=== PATIENT | female | born 1960 | race Hispanic/Latino ===

== ENCOUNTER 2023-05-02 21:02 | Inpatient (IN) | payer SELFPAY ==
[2023-05-02 21:51] LABS: #Basophils 0.1 10x3/uL (0.0-0.2); #Neutrophils 7.8 10x3/uL (1.5-8.4); %Basophils 0.5 % (0.0-2.0); %Eosinophils 0.1 % (0.0-6.0); %Lymphocytes 34.3 % (18.0-47.0); %Monocytes 7.4 % (0.0-10.0); Hemoglobin 9.3 g/dL (12.0-15.5); Mean Corpuscular HGB CONC 32.1 g/dL (32.0-36.0); Mean Corpuscular Hemoglobin 31.6 pg (27.0-33.0); Mean Corpuscular Volume 98.6 fl (81.6-98.3); Mean Platelet Volume 11.9 fl (7.4-10.4); Platelet Count 161 10x3/uL (150-450); RBC Distribution Width 13.6 % (11.5-14.5); Red Blood Cell (RBC) Count 2.94 10x6/uL (3.90-5.03); White Blood Cell (WBC) Count 13.7 10x3/uL (3.5-10.5)
[2023-05-02 21:57] LABS: ALT (SGPT) 32 U/L (8-55); AST (SGOT) 44 U/L (5-34); Albumin 3.1 g/dL (3.4-4.8); Alkaline Phosphatase 48 U/L (40-110); Anion Gap 30 mmol/L (10-20); BUN (Urea Nitrogen) 66 mg/dL (9.8-20.1); Calc. Creatinine Clearance 0 mL/min (70-130); Calcium 9.4 mg/dL (7.8-10.44); Carbon Dioxide 16 mmol/L (23-31); Chloride 99 mmol/L (98-107); Estimated GFR 39; Glucose 188 mg/dL (80-115); Magnesium 1.3 mg/dL (1.6-2.6); Potassium 4.5 mmol/L (3.5-5.1); Protein, Total 6.1 g/dL (5.8-8.1); Sodium 140 mmol/L (136-145)
[2023-05-02 22:13] LABS: Troponin I 0.315 ng/mL (< 0.028)
[2023-05-02 22:50] LABS: Bilirubin Neg (Negative); Blood, Urine Negative (Negative); Clarity Clear (Clear); Glucose, Urine (Dipstick) Normal (Negative); Ketone, Urine 15 mg/dL (Negative); Leukocyte 25 (Negative); Nitrite Negative (Negative); Protein, Urine (Dipstick) 15 mg/dl (Neg-Trace); Urobilinogen Normal mg/dL (Less than 2)
[2023-05-02 23:01] LABS: Bacteria/HPF Rare-Few HPF (None Seen); CAUTI Indications for Culture Alt mental st,lethar; Mucous/LPF Rare LPF (<2+); RBC/HPF 0-3 HPF (0-3); Squamous Epithelial 0-3 HPF (0-3)
[2023-05-02 23:02] LABS: Urine Culture Reflex No No
[2023-05-02] MEDS ORDERED: Piperacillin/Tazobactam 3.375 GM VIAL ONE (23:36)
[2023-05-02] MEDS ORDERED: Pantoprazole 40 MG VIAL ONE (23:37)
[2023-05-02] MEDS ORDERED: NOREPINEPHRINE 8 MG/250 ML-D5W 250 ML ONE (23:38)
[2023-05-02] MEDS ORDERED: Pantoprazole 80 MG, Admixture Fee 1 EACH in Sodium Chloride 0.9% 100 ML IVPB SCH (23:45)
[2023-05-03 00:31] LABS: #Monocytes 0.7 10x3/uL (0.0-1.1); #Neutrophils 9.9 10x3/uL (1.5-8.4); %Basophils 0.3 % (0.0-2.0); %Eosinophils 0.1 % (0.0-6.0); %Lymphocytes 27.1 % (18.0-47.0); %Monocytes 4.9 % (0.0-10.0); %Neutrophils 66.8 % (40.0-75.0); Hematocrit 24.5 % (34.9-44.5); Mean Corpuscular HGB CONC 32.7 g/dL (32.0-36.0); Platelet Count 145 10x3/uL (150-450); RBC Distribution Width 13.9 % (11.5-14.5); White Blood Cell (WBC) Count 14.8 10x3/uL (3.5-10.5)
[2023-05-03 00:41] LABS: Lactic Acid 12.7 mmol/L (0.5-2.2)
[2023-05-03] MEDS ORDERED: Ondansetron ODT 4 MG TAB PO PRN (00:57)
[2023-05-03] MEDS ORDERED: Ondansetron PF 4 MG/2 ML Vial IVP PRN (00:57)
[2023-05-03] MEDS ORDERED: Acetaminophen 325 MG TAB PO PRN ×2 (00:57→01:59)
[2023-05-03] MEDS ORDERED: Acetaminophen 650 MG Suppository PR PRN ×2 (00:57→02:00)
[2023-05-03 01:14] LABS: SARS-CoV-2 NAA Rapid Test Not Detected (NotDetected)
[2023-05-03] MEDS: NOREPINEPHRINE 8 MG/250 ML-D5W 250 ML IVPB SCH ×2 (01:25→06:12)
[2023-05-03 01:26] LABS: Anion Gap 28 mmol/L (10-20); BUN (Urea Nitrogen) 59 mg/dL (9.8-20.1); Calc. Creatinine Clearance 0 mL/min (70-130); Calcium 8.1 mg/dL (7.8-10.44); Carbon Dioxide 13 mmol/L (23-31); Chloride 104 mmol/L (98-107); Estimated GFR 56; Glucose 239 mg/dL (80-115); Potassium 4.5 mmol/L (3.5-5.1); Sodium 140 mmol/L (136-145)
[2023-05-03 01:51] VITALS: BMI 34.4
[2023-05-03] MEDS ORDERED: Glucagon 1 MG/ML KIT IM PRN (02:01)
[2023-05-03] MEDS ORDERED: HumaLOG 300 UNITS/3 ML VIAL SC PRN (02:01)
[2023-05-03] MEDS ORDERED: Dextrose 5% in Water 1,000 ML IV PRN (02:01)
[2023-05-03] MEDS ORDERED: Dextrose 50% Abboject 50 ML SYRINGE SLOW IVP PRN (02:01)
[2023-05-03] MEDS ORDERED: FLU VACC QS2023-24(6MOS UP)/PF 60 MCG/0.5 ML SYRINGE IM ONE (02:15)
[2023-05-03] MEDS ORDERED: Sodium Chloride 0.9% 1,000 ML IV SCH (03:30)
[2023-05-03 03:33] LABS: Anion Gap 24 mmol/L (10-20); BUN (Urea Nitrogen) 55 mg/dL (9.8-20.1); Calc. Creatinine Clearance 80 mL/min (70-130); Calcium 7.9 mg/dL (7.8-10.44); Carbon Dioxide 11 mmol/L (23-31); Chloride 107 mmol/L (98-107); Estimated GFR 64; Glucose 254 mg/dL (80-115); Potassium 4.4 mmol/L (3.5-5.1); Sodium 138 mmol/L (136-145)
[2023-05-03 03:35] LABS: Troponin I 0.357 ng/mL (< 0.028)
[2023-05-03] MEDS: Sodium Chloride 0.9% 1,000 ML IV SCH ×3 (03:45→14:20)
[2023-05-03] MEDS: HumaLOG 300 UNITS/3 ML VIAL SC PRN ×3 (06:13→16:30)
[2023-05-03] MEDS: Piperacillin/Tazobactam 3.375 GM in Sodium Chloride 0.9% 100 ML IVPB SCH ×3 (06:13→21:55)
[2023-05-03 06:24] LABS: #Monocytes 1.3 10x3/uL (0.0-1.1); #Neutrophils 9.8 10x3/uL (1.5-8.4); %Basophils 0.2 % (0.0-2.0); %Eosinophils 0.1 % (0.0-6.0); %Lymphocytes 31.8 % (18.0-47.0); %Monocytes 8.1 % (0.0-10.0); %Neutrophils 59.1 % (40.0-75.0); Hematocrit 23.3 % (34.9-44.5); Hemoglobin 7.8 g/dL (12.0-15.5); Mean Corpuscular HGB CONC 33.5 g/dL (32.0-36.0); Mean Corpuscular Volume 95.5 fl (81.6-98.3); Mean Platelet Volume 11.9 fl (7.4-10.4); Platelet Count 128 10x3/uL (150-450); RBC Distribution Width 15.1 % (11.5-14.5); Red Blood Cell (RBC) Count 2.44 10x6/uL (3.90-5.03); White Blood Cell (WBC) Count 16.6 10x3/uL (3.5-10.5)
[2023-05-03 06:31] LABS: Lactic Acid 8.1 mmol/L (0.5-2.2)
[2023-05-03 07:18] LABS: INR-International Normal Ratio 1.5; PTT 30.6 sec (22.0-33.0); Prothrombin Time 16.4 sec (9.5-12.1)
[2023-05-03] MEDS: Pantoprazole 80 MG, Admixture Fee 1 EACH in Sodium Chloride 0.9% 100 ML IVPB SCH ×2 (07:29→15:11)
[2023-05-03] MEDS ORDERED: Iopamidol 300 61% 100 ML VIAL FS ONE (10:27)
[2023-05-03 11:07] LABS: Hematocrit 24.7 % (34.9-44.5); Hemoglobin 8.3 g/dL (12.0-15.5); Platelet Count 122 10x3/uL (150-450)
[2023-05-03] MEDS ORDERED: Succinylcholine 200 MG/10 ml SYRINGE FS ONE ×3 (11:58→12:01)
[2023-05-03] MEDS ORDERED: Vasopressin 20 UNITS/ML VIAL ONE (12:02)
[2023-05-03] MEDS ORDERED: Promethazine HCl 25 MG/ML VIAL ONE (12:02)
[2023-05-03] MEDS ORDERED: PHENYLEPHRINE-NS 100 MCG/ML 10 ML SYRINGE ONE ×2 (12:05→13:23)
[2023-05-03] MEDS ORDERED: fentaNYL 50 mcg/mL 1 mL Vial ONE ×2 (13:02→13:24)
[2023-05-03] MEDS ORDERED: Ondansetron PF 4 MG/2 ML Vial ONE (13:20)
[2023-05-03] MEDS: Octreotide Acetate 1,250 MCG in Sodium Chloride 0.9% 250 ML 250 ML IVPB SCH (15:11)
[2023-05-04] MEDS: Sodium Chloride 0.9% 1,000 ML IV SCH ×4 (00:36→18:50)
[2023-05-04 04:14] LABS: #Eosinphils 0.2 10x3/uL (0.0-0.5); #Monocytes 0.6 10x3/uL (0.0-1.1); #Neutrophils 3.1 10x3/uL (1.5-8.4); %Basophils 0.5 % (0.0-2.0); %Eosinophils 3.2 % (0.0-6.0); %Lymphocytes 33.1 % (18.0-47.0); %Monocytes 9.9 % (0.0-10.0); %Neutrophils 53.1 % (40.0-75.0); Hematocrit 20.5 % (34.9-44.5); Hemoglobin 6.8 g/dL (12.0-15.5); Mean Corpuscular HGB CONC 33.2 g/dL (32.0-36.0); Mean Corpuscular Hemoglobin 30.8 pg (27.0-33.0); Mean Corpuscular Volume 92.8 fl (81.6-98.3); Mean Platelet Volume 11.3 fl (7.4-10.4); Platelet Count 60 10x3/uL (150-450); RBC Distribution Width 17.6 % (11.5-14.5); Red Blood Cell (RBC) Count 2.21 10x6/uL (3.90-5.03); White Blood Cell (WBC) Count 5.9 10x3/uL (3.5-10.5)
[2023-05-04 04:22] LABS: ALT (SGPT) 27 U/L (8-55); AST (SGOT) 47 U/L (5-34); Albumin 2.1 g/dL (3.4-4.8); Alkaline Phosphatase 34 U/L (40-110); Anion Gap 8 mmol/L (10-20); BUN (Urea Nitrogen) 27 mg/dL (9.8-20.1); Calc. Creatinine Clearance 116 mL/min (70-130); Calcium 6.5 mg/dL (7.8-10.44); Carbon Dioxide 23 mmol/L (23-31); Chloride 114 mmol/L (98-107); Estimated GFR 98; Globulin 1.9 g/dL (2.4-3.5); Glucose 242 mg/dL (80-115); Iron 58 ug/dL (50-170); Iron Binding Capacity, Total 196 mcg/dL (265-497); Potassium 3.2 mmol/L (3.5-5.1); Sodium 142 mmol/L (136-145)
[2023-05-04 04:28] LABS: Ferritin 88.61 ng/mL (10-291)
[2023-05-04 04:33] LABS: Platelet Adequacy Comment Appears Decreased; Polychromasia SLIGHT = 2-3 cells (100X) (0-2/hpf)
[2023-05-04] MEDS: Piperacillin/Tazobactam 3.375 GM in Sodium Chloride 0.9% 100 ML IVPB SCH ×2 (05:00→13:46)
[2023-05-04] MEDS ORDERED: Potassium Chloride 20 MEQ TAB PO SCH (05:00)
[2023-05-04] MEDS: Pantoprazole 80 MG, Admixture Fee 1 EACH in Sodium Chloride 0.9% 100 ML IVPB SCH ×2 (05:00→15:19)
[2023-05-04 08:23] LABS: Lactic Acid 1.2 mmol/L (0.5-2.2)
[2023-05-04] MEDS: HumaLOG 300 UNITS/3 ML VIAL SC PRN ×2 (11:42→16:34)
[2023-05-04 13:51] LABS: Immunoglob - A (Total IgA) 250 mg/dL (69-517); Immunoglob - G (Total IgG) 1077 mg/dL (552-1631); Immunoglob - M (Total IgM) 118 mg/dL (33-293)
[2023-05-04 14:42] LABS: Hep C IgG Ab Non-Reactive S/CO (NonReactive); Hep C Index 0.08 S/CO (0-0.79)
[2023-05-04 14:44] LABS: HBCM Index 0.08 S/CO (0-0.79); HBSAg Index 0.27 S/CO (0-0.99); Hep A IgM AB Non-Reactive S/CO (NonReactive); Hep A IgM S/CO 0.22 S/CO (0-0.79); Hep B Surf Ag Non-Reactive S/CO (NonReactive); Hepatitis B Core IgM Abs Non-Reactive S/CO (NonReactive)
[2023-05-04] MEDS: Octreotide Acetate 1,250 MCG in Sodium Chloride 0.9% 250 ML 250 ML IVPB SCH (16:48)
[2023-05-04] MEDS: Pantoprazole 40 MG VIAL IVP SCH (21:40)
[2023-05-05] MEDS: Sodium Chloride 0.9% 1,000 ML IV SCH ×4 (01:52→21:36)
[2023-05-05 04:13] LABS: Hematocrit 23.6 % (34.9-44.5); Hemoglobin 8.1 g/dL (12.0-15.5)
[2023-05-05 04:25] LABS: Anion Gap 9 mmol/L (10-20); BUN (Urea Nitrogen) 11 mg/dL (9.8-20.1); Calc. Creatinine Clearance 148 mL/min (70-130); Carbon Dioxide 20 mmol/L (23-31); Chloride 114 mmol/L (98-107); Estimated GFR 103; Glucose 136 mg/dL (80-115); Potassium 3.1 mmol/L (3.5-5.1); Sodium 140 mmol/L (136-145)
[2023-05-05 04:39] LABS: Calcium 5.9 mg/dL (7.8-10.44)
[2023-05-05] MEDS ORDERED: Phenol 177 ML BOT PO PRN ×2 (05:24→08:35)
[2023-05-05] MEDS ORDERED: Magnesium 2 GM/50 ML(in water) 2 GM in Premix 1 BAG IVPB SCH ×2 (06:00→10:00)
[2023-05-05] MEDS ORDERED: Calcium Gluc 4.6 MEQ/10 ML (100 MG/ML) SLOW IVP SCH (06:00)
[2023-05-05] MEDS: Potassium Chloride 20 MEQ in Premix 1 BAG IVPB SCH ×2 (06:18→08:39)
[2023-05-05] MEDS ORDERED: Electrolyte Replacement Protocol 1 EACH FS SCH (08:00)
[2023-05-05] MEDS: Pantoprazole 40 MG VIAL IVP SCH ×2 (08:39→20:26)
[2023-05-05 10:19] LABS: Anion Gap 9 mmol/L (10-20); BUN (Urea Nitrogen) 10 mg/dL (9.8-20.1); Calc. Creatinine Clearance 151 mL/min (70-130); Carbon Dioxide 18 mmol/L (23-31); Chloride 116 mmol/L (98-107); Estimated GFR 101; Glucose 255 mg/dL (80-115); Magnesium 1.8 mg/dL (1.6-2.6); Potassium 3.8 mmol/L (3.5-5.1); Sodium 139 mmol/L (136-145)
[2023-05-05 10:23] LABS: Calcium 6.1 mg/dL (7.8-10.44)
[2023-05-05] MEDS: HumaLOG 300 UNITS/3 ML VIAL SC PRN ×2 (11:43→15:47)
[2023-05-05] MEDS ORDERED: Calcium Gluconate 4.6 MEQ in Sodium Chloride 0.9% 100 ML IVPB SCH (12:00)
[2023-05-05 14:05] LABS: Potassium 3.9 mmol/L (3.5-5.1)
[2023-05-05] MEDS: Octreotide Acetate 1,250 MCG in Sodium Chloride 0.9% 250 ML 250 ML IVPB SCH (20:23)
[2023-05-05] MEDS: Ciprofloxacin 500 MG TAB PO SCH (20:23)
[2023-05-05] MEDS: Propranolol HCl 20 MG TAB PO SCH (20:24)
[2023-05-06 04:12] LABS: #Eosinphils 0.3 10x3/uL (0.0-0.5); #Monocytes 0.9 10x3/uL (0.0-1.1); #Neutrophils 5.3 10x3/uL (1.5-8.4); %Basophils 0.5 % (0.0-2.0); %Lymphocytes 23.7 % (18.0-47.0); %Monocytes 10.3 % (0.0-10.0); %Neutrophils 62.1 % (40.0-75.0); Hemoglobin 8.4 g/dL (12.0-15.5); Mean Corpuscular HGB CONC 33.6 g/dL (32.0-36.0); Mean Corpuscular Hemoglobin 31.2 pg (27.0-33.0); Mean Corpuscular Volume 92.9 fl (81.6-98.3); Mean Platelet Volume 11.6 fl (7.4-10.4); Platelet Count 90 10x3/uL (150-450); RBC Distribution Width 18.7 % (11.5-14.5); Red Blood Cell (RBC) Count 2.69 10x6/uL (3.90-5.03); White Blood Cell (WBC) Count 8.6 10x3/uL (3.5-10.5)
[2023-05-06 04:21] LABS: Anion Gap 10 mmol/L (10-20); BUN (Urea Nitrogen) 6 mg/dL (9.8-20.1); Calc. Creatinine Clearance 174 mL/min (70-130); Carbon Dioxide 19 mmol/L (23-31); Chloride 114 mmol/L (98-107); Estimated GFR 105; Glucose 149 mg/dL (80-115); Magnesium 1.2 mg/dL (1.6-2.6); Potassium 3.4 mmol/L (3.5-5.1); Sodium 140 mmol/L (136-145)
[2023-05-06 04:22] LABS: Phosphorus 1.4 mg/dL (2.3-4.7)
[2023-05-06 04:29] LABS: Calcium 5.8 mg/dL (7.8-10.44)
[2023-05-06] MEDS: Sodium Chloride 0.9% 1,000 ML IV SCH (05:39)
[2023-05-06] MEDS: Ciprofloxacin 500 MG TAB PO SCH ×2 (05:41→19:57)
[2023-05-06] MEDS: Magnesium 2 GM/50 ML(in water) 2 GM in Premix 1 BAG IVPB SCH ×2 (05:43→06:15)
[2023-05-06] MEDS ORDERED: Magnesium 2 GM/50 ML(in water) 2 GM in Premix 1 BAG IVPB SCH ×2 (06:00→15:30)
[2023-05-06] MEDS ORDERED: Potassium Phosphate 22 MMOL in Sodium Chloride 0.9% 250 ML 250 ML IVPB SCH (06:00)
[2023-05-06] MEDS ORDERED: Calcium Gluc 4.6 MEQ/10 ML (100 MG/ML) SLOW IVP SCH (06:15)
[2023-05-06] MEDS: Propranolol HCl 20 MG TAB PO SCH ×2 (07:43→19:57)
[2023-05-06] MEDS: Pantoprazole 40 MG VIAL IVP SCH ×2 (07:43→19:57)
[2023-05-06] MEDS ORDERED: Potassium Chloride 20 MEQ TAB PO SCH (09:00)
[2023-05-06] MEDS ORDERED: Furosemide 40 MG/4 ML VIAL SLOW IVP SCH (09:00)
[2023-05-06] MEDS: HumaLOG 300 UNITS/3 ML VIAL SC PRN ×2 (11:23→16:23)
[2023-05-06 13:30] LABS: Anion Gap 12 mmol/L (10-20); BUN (Urea Nitrogen) 6 mg/dL (9.8-20.1); Calc. Creatinine Clearance 163 mL/min (70-130); Calcium 6.1 mg/dL (7.8-10.44); Carbon Dioxide 19 mmol/L (23-31); Chloride 113 mmol/L (98-107); Estimated GFR 102; Glucose 183 mg/dL (80-115); Magnesium 1.6 mg/dL (1.6-2.6); Phosphorus 2.2 mg/dL (2.3-4.7); Potassium 3.6 mmol/L (3.5-5.1); Sodium 140 mmol/L (136-145)
[2023-05-06 14:46] LABS: Potassium 3.6 mmol/L (3.5-5.1)
[2023-05-06] MEDS ORDERED: Calcium Gluconate 4.6 MEQ in Sodium Chloride 0.9% 100 ML IVPB SCH (15:30)
[2023-05-06] MEDS ORDERED: Potassium Phosphate 30 MMOL in Sodium Chloride 0.9% 250 ML 250 ML IVPB SCH ×2 (16:30→18:15)
[2023-05-07] MEDS: Octreotide Acetate 1,250 MCG in Sodium Chloride 0.9% 250 ML 250 ML IVPB SCH (00:29)
[2023-05-07 03:53] LABS: Anion Gap 11 mmol/L (10-20); BUN (Urea Nitrogen) 7 mg/dL (9.8-20.1); Calc. Creatinine Clearance 156 mL/min (70-130); Carbon Dioxide 21 mmol/L (23-31); Chloride 111 mmol/L (98-107); Estimated GFR 102; Glucose 148 mg/dL (80-115); Magnesium 1.5 mg/dL (1.6-2.6); Phosphorus 2.4 mg/dL (2.3-4.7); Potassium 3.6 mmol/L (3.5-5.1); Sodium 139 mmol/L (136-145)
[2023-05-07 03:57] LABS: Calcium 6.1 mg/dL (7.8-10.44)
[2023-05-07 03:58] LABS: #Eosinphils 0.3 10x3/uL (0.0-0.5); #Neutrophils 5.9 10x3/uL (1.5-8.4); %Basophils 0.4 % (0.0-2.0); %Eosinophils 2.5 % (0.0-6.0); %Lymphocytes 28.5 % (18.0-47.0); %Monocytes 10.3 % (0.0-10.0); %Neutrophils 57.7 % (40.0-75.0); Hematocrit 25.8 % (34.9-44.5); Hemoglobin 8.6 g/dL (12.0-15.5); Mean Corpuscular HGB CONC 33.3 g/dL (32.0-36.0); Mean Corpuscular Hemoglobin 30.9 pg (27.0-33.0); Mean Corpuscular Volume 92.8 fl (81.6-98.3); RBC Distribution Width 18.5 % (11.5-14.5); Red Blood Cell (RBC) Count 2.78 10x6/uL (3.90-5.03); White Blood Cell (WBC) Count 10.1 10x3/uL (3.5-10.5)
[2023-05-07 04:17] LABS: Anisocytosis MODERATE=16-30 cells (100X) (0-5/hpf)
[2023-05-07 04:18] LABS: Delete Auto Diff?? NO; Platelet Adequacy Comment Appears Decreased; Polychromasia MODERATE = 3-4 cells (100X) (0-2/hpf)
[2023-05-07 04:19] LABS: Small Platelets SLIGHT HPF (0-15)
[2023-05-07 04:20] LABS: Mean Platelet Volume 11.1 fl (7.4-10.4); Platelet Count 115 10x3/uL (150-450)
[2023-05-07] MEDS: Ciprofloxacin 500 MG TAB PO SCH ×2 (05:51→19:56)
[2023-05-07] MEDS ORDERED: Magnesium 2 GM/50 ML(in water) 2 GM in Premix 1 BAG IVPB SCH ×2 (06:00→10:00)
[2023-05-07] MEDS ORDERED: Furosemide 40 MG/4 ML VIAL SLOW IVP SCH (09:00)
[2023-05-07] MEDS ORDERED: Spironolactone 25 MG TAB PO SCH (09:00)
[2023-05-07] MEDS ORDERED: Potassium Chloride 20 MEQ TAB PO SCH (09:00)
[2023-05-07] MEDS: Propranolol HCl 20 MG TAB PO SCH ×2 (09:16→21:01)
[2023-05-07] MEDS: HumaLOG 300 UNITS/3 ML VIAL SC PRN ×2 (12:18→15:57)
[2023-05-07] MEDS: Furosemide 40 MG/4 ML VIAL SLOW IVP SCH (14:30)
[2023-05-07 16:06] LABS: Anion Gap 9 mmol/L (10-20); BUN (Urea Nitrogen) 8 mg/dL (9.8-20.1); Calc. Creatinine Clearance 137 mL/min (70-130); Carbon Dioxide 24 mmol/L (23-31); Chloride 109 mmol/L (98-107); Estimated GFR 99; Glucose 214 mg/dL (80-115); Potassium 3.7 mmol/L (3.5-5.1); Sodium 138 mmol/L (136-145)
[2023-05-07 16:09] LABS: Calcium 6.3 mg/dL (7.8-10.44)
[2023-05-07] MEDS ORDERED: Calcium Gluc 4.6 MEQ/10 ML (100 MG/ML) SLOW IVP SCH (16:30)
[2023-05-07] MEDS: Calcium Carbonate 500 MG ChewTAB PO SCH (21:01)
[2023-05-08 05:12] LABS: #Eosinphils 0.2 10x3/uL (0.0-0.5); #Monocytes 0.8 10x3/uL (0.0-1.1); #Neutrophils 4.8 10x3/uL (1.5-8.4); %Basophils 0.5 % (0.0-2.0); %Eosinophils 2.3 % (0.0-6.0); %Lymphocytes 30.7 % (18.0-47.0); %Monocytes 9.7 % (0.0-10.0); Hematocrit 25.4 % (34.9-44.5); Hemoglobin 8.5 g/dL (12.0-15.5); Mean Corpuscular HGB CONC 33.5 g/dL (32.0-36.0); Mean Corpuscular Hemoglobin 31.3 pg (27.0-33.0); Mean Corpuscular Volume 93.4 fl (81.6-98.3); Mean Platelet Volume 11.7 fl (7.4-10.4); Platelet Count 97 10x3/uL (150-450); RBC Distribution Width 17.9 % (11.5-14.5); Red Blood Cell (RBC) Count 2.72 10x6/uL (3.90-5.03); White Blood Cell (WBC) Count 8.6 10x3/uL (3.5-10.5)
[2023-05-08 05:28] LABS: Anion Gap 8 mmol/L (10-20); BUN (Urea Nitrogen) 8 mg/dL (9.8-20.1); Calc. Creatinine Clearance 151 mL/min (70-130); Carbon Dioxide 25 mmol/L (23-31); Chloride 109 mmol/L (98-107); Estimated GFR 101; Glucose 132 mg/dL (80-115); Magnesium 1.2 mg/dL (1.6-2.6); Phosphorus 2.2 mg/dL (2.3-4.7); Potassium 3.4 mmol/L (3.5-5.1); Sodium 139 mmol/L (136-145)
[2023-05-08 05:35] LABS: Calcium 6.4 mg/dL (7.8-10.44)
[2023-05-08] MEDS: Furosemide 40 MG/4 ML VIAL SLOW IVP SCH ×2 (06:30→14:36)
[2023-05-08] MEDS: Ciprofloxacin 500 MG TAB PO SCH ×2 (06:30→22:00)
[2023-05-08] MEDS ORDERED: Potassium Chloride 20 MEQ in Premix 1 BAG IVPB SCH (08:00)
[2023-05-08] MEDS ORDERED: Potassium Phosphate 30 MMOL in Sodium Chloride 0.9% 500 ML IVPB SCH (09:00)
[2023-05-08] MEDS: Magnesium 2 GM/50 ML(in water) 2 GM in Premix 1 BAG IVPB SCH ×4 (09:25→14:35)
[2023-05-08] MEDS: Calcium Carbonate 500 MG ChewTAB PO SCH ×2 (09:26→21:59)
[2023-05-08] MEDS: Spironolactone 25 MG TAB PO SCH (09:26)
[2023-05-08] MEDS: Propranolol HCl 20 MG TAB PO SCH ×2 (09:32→22:00)
[2023-05-08] MEDS: HumaLOG 300 UNITS/3 ML VIAL SC PRN ×3 (11:04→22:13)
[2023-05-08 11:50] LABS: Anion Gap 12 mmol/L (10-20); BUN (Urea Nitrogen) 8 mg/dL (9.8-20.1); Calc. Creatinine Clearance 141 mL/min (70-130); Carbon Dioxide 24 mmol/L (23-31); Chloride 106 mmol/L (98-107); Estimated GFR 99; Glucose 263 mg/dL (80-115); Magnesium 1.2 mg/dL (1.6-2.6); Potassium 3.6 mmol/L (3.5-5.1); Sodium 138 mmol/L (136-145)
[2023-05-08 11:56] LABS: Calcium 6.7 mg/dL (7.8-10.44)
[2023-05-08] MEDS ORDERED: Magnesium Sulfate 4 GM in Sodium Chloride 0.9% 250 ML 250 ML IVPB SCH (12:15)
[2023-05-08] MEDS ORDERED: Calcium Gluconate 4.6 MEQ in Sodium Chloride 0.9% 100 ML IVPB SCH (12:30)
[2023-05-08 12:39] LABS: ANA Symphony (Qualitative) Negative (Negative); ANA Symphony (Quantitative) 0.3 Ratio (< 0.7 Negative); EliA Vaculitis New Method **** NEW METHOD ****; Mitochondrial Ab 1.2 U/mL (<4 Negative); dsDNA IgG Antibody 1.5 IU/mL (<10 Negative)
[2023-05-08 17:21] LABS: Anion Gap 13 mmol/L (10-20); BUN (Urea Nitrogen) 9 mg/dL (9.8-20.1); Calc. Creatinine Clearance 145 mL/min (70-130); Carbon Dioxide 21 mmol/L (23-31); Chloride 107 mmol/L (98-107); Estimated GFR 100; Glucose 230 mg/dL (80-115); Magnesium 2.2 mg/dL (1.6-2.6); Potassium 3.8 mmol/L (3.5-5.1); Sodium 137 mmol/L (136-145)
[2023-05-08 17:27] LABS: Calcium 6.8 mg/dL (7.8-10.44)
[2023-05-08] MEDS ORDERED: Calcium Gluc 4.6 MEQ/10 ML (100 MG/ML) SLOW IVP SCH (21:00)
[2023-05-08] MEDS: Calcium Carbonate 600 MG + Vit D TAB PO SCH (21:59)
[2023-05-08] MEDS ORDERED: Loperamide HCl 2 MG CAP PO SCH (22:45)
[2023-05-09 05:35] LABS: Anion Gap 10 mmol/L (10-20); BUN (Urea Nitrogen) 8 mg/dL (9.8-20.1); Calc. Creatinine Clearance 166 mL/min (70-130); Carbon Dioxide 24 mmol/L (23-31); Chloride 107 mmol/L (98-107); Estimated GFR 103; Glucose 139 mg/dL (80-115); Potassium 3.4 mmol/L (3.5-5.1); Sodium 138 mmol/L (136-145)
[2023-05-09 05:40] LABS: Calcium 6.6 mg/dL (7.8-10.44)
[2023-05-09] MEDS: Furosemide 40 MG/4 ML VIAL SLOW IVP SCH (06:24)
[2023-05-09] MEDS: Ciprofloxacin 500 MG TAB PO SCH (06:34)
[2023-05-09] MEDS ORDERED: Calcium Chloride 1 GM/10 ML Abboject SYRINGE IVP SCH (07:30)
[2023-05-09] MEDS: Spironolactone 25 MG TAB PO SCH (08:54)
[2023-05-09] MEDS: Calcium Carbonate 600 MG + Vit D TAB PO SCH (08:54)
[2023-05-09] MEDS: Propranolol HCl 20 MG TAB PO SCH (08:58)
[2023-05-09] MEDS ORDERED: Potassium Chloride 20 MEQ TAB PO SCH ×2 (09:00→12:15)
[2023-05-09] MEDS ORDERED: Calcium Gluconate 9.2 MEQ, Admixture Fee 1 EACH in Sodium Chloride 0.9% 100 ML IVPB SCH (09:00)
[2023-05-09 11:54] LABS: Anion Gap 8 mmol/L (10-20); BUN (Urea Nitrogen) 8 mg/dL (9.8-20.1); Calc. Creatinine Clearance 157 mL/min (70-130); Calcium 7.3 mg/dL (7.8-10.44); Carbon Dioxide 26 mmol/L (23-31); Chloride 107 mmol/L (98-107); Estimated GFR 102; Glucose 217 mg/dL (80-115); Potassium 3.4 mmol/L (3.5-5.1); Sodium 138 mmol/L (136-145)
[2023-05-09] MEDS ORDERED: Calcium Carbonate 500 MG ChewTAB PO SCH (13:00)
[2023-05-09 14:24] VITALS: BP 118/62; TEMP 98.5
== END 2023-05-09 15:00 | disposition home or self-care (01) | DRG 432 ==
LOC: CSHERS 21:02 → CSHICU 21:29 → CSHTELE 05-08 01:43
PROVIDERS: ADMIT Student in an Organized Health Care Education/Training Program; ATTEND Family Medicine
PROC: 05HN33Z Insertion of Infusion Device into Left Internal Jugular Vein, Percutaneous Approach (ICD-10-PCS; principal; 2023-05-02)
PROC: 3E043XZ Introduction of Vasopressor into Central Vein, Percutaneous Approach (ICD-10-PCS; 2023-05-02)
PROC: 06L38CZ Occlusion of Esophageal Vein with Extraluminal Device, Via Natural or Artificial Opening Endoscopic (ICD-10-PCS; 2023-05-03)
PROC: 0DB98ZX Excision of Duodenum, Via Natural or Artificial Opening Endoscopic, Diagnostic (ICD-10-PCS; 2023-05-03)
PROC: 30233N1 Transfusion of Nonautologous Red Blood Cells into Peripheral Vein, Percutaneous Approach (ICD-10-PCS; 2023-05-03)
DX: K74.60 Unspecified cirrhosis of liver (principal); I85.11 Secondary esophageal varices with bleeding; R57.1 Hypovolemic shock; R57.8 Other shock; K26.4 Chronic or unspecified duodenal ulcer with hemorrhage; D62 Acute posthemorrhagic anemia; N17.9 Acute kidney failure, unspecified; E87.21 Acute metabolic acidosis; K22.10 Ulcer of esophagus without bleeding; E11.9 Type 2 diabetes mellitus without complications; I10 Essential (primary) hypertension; E78.5 Hyperlipidemia, unspecified; K25.9 Gastric ulcer, unspecified as acute or chronic, without hemorrhage or perforation; E87.6 Hypokalemia; E83.42 Hypomagnesemia; K31.89 Other diseases of stomach and duodenum; E83.51 Hypocalcemia; G51.0 Bell's palsy; E83.39 Other disorders of phosphorus metabolism; Z79.899 Other long term (current) drug therapy; Z98.890 Other specified postprocedural states; Z79.84 Long term (current) use of oral hypoglycemic drugs; Z20.822 Contact with and (suspected) exposure to COVID-19
CPT/HCPCS: 36415; 36416; 36430; 70450; 71045; 74177; 80048; 80053; 80074; 81001; 82103; 82274; 82306; 82390; 82607; 82728; 83516; 83540; 83550; 83605; 83735; 83880; 83970; 84100; 84443; 84484; 85014; 85018; 85025; 85610; 85730; 86015; 86038; 86225; 86850; 86900; 86901; 87040; 87077; 93005; 93010; C9113; J0612; J1815; J1940; J2354; J2405; J2543; J2550; J3010; J3475; J3480; J3490; J7030; J7050; P9016; Q9967

== ENCOUNTER 2023-05-13 11:26 | Emergency (ER) | payer SELFPAY ==
[2023-05-13 12:26] LABS: #Eosinphils 0.2 10x3/uL (0.0-0.5); #Monocytes 0.6 10x3/uL (0.0-1.1); #Neutrophils 3.9 10x3/uL (1.5-8.4); %Basophils 0.5 % (0.0-2.0); %Eosinophils 2.9 % (0.0-6.0); %Lymphocytes 29.2 % (18.0-47.0); %Monocytes 8.9 % (0.0-10.0); %Neutrophils 58.3 % (40.0-75.0); Hematocrit 27.6 % (34.9-44.5); Mean Corpuscular HGB CONC 32.6 g/dL (32.0-36.0); Mean Corpuscular Hemoglobin 30.3 pg (27.0-33.0); Mean Corpuscular Volume 92.9 fl (81.6-98.3); Mean Platelet Volume 11.1 fl (7.4-10.4); Platelet Count 178 10x3/uL (150-450); RBC Distribution Width 16.6 % (11.5-14.5); Red Blood Cell (RBC) Count 2.97 10x6/uL (3.90-5.03); White Blood Cell (WBC) Count 6.7 10x3/uL (3.5-10.5)
[2023-05-13 12:42] LABS: ALT (SGPT) 27 U/L (8-55); AST (SGOT) 52 U/L (5-34); Albumin 2.7 g/dL (3.4-4.8); Alkaline Phosphatase 71 U/L (40-110); Anion Gap 13 mmol/L (10-20); BUN (Urea Nitrogen) 8 mg/dL (9.8-20.1); Calc. Creatinine Clearance 0 mL/min (70-130); Calcium 7.9 mg/dL (7.8-10.44); Carbon Dioxide 22 mmol/L (23-31); Chloride 108 mmol/L (98-107); Estimated GFR 98; Globulin 3.4 g/dL (2.4-3.5); Glucose 172 mg/dL (80-115); Magnesium 1.3 mg/dL (1.6-2.6); Potassium 4.4 mmol/L (3.5-5.1); Protein, Total 6.1 g/dL (5.8-8.1); Sodium 139 mmol/L (136-145)
[2023-05-13] MEDS ORDERED: Mag-Al Plus 1200 MG/1200 MG/120 MG/30 ML UDCUP ONE (12:55)
[2023-05-13 13:06] LABS: Bilirubin, Total 0.9 mg/dL (0.2-1.2)
[2023-05-13] MEDS ORDERED: Magnesium Oxide 400 MG TAB PO SCH (13:15)
== END 2023-05-13 14:06 | disposition home or self-care (01) ==
LOC: CSHERS 11:26
DX: K92.2 Gastrointestinal hemorrhage, unspecified (principal); E83.42 Hypomagnesemia; E11.9 Type 2 diabetes mellitus without complications; I10 Essential (primary) hypertension
CPT/HCPCS: 80053; 82274; 83735; 85025; 99284